=== PATIENT | female | born 1965 | race Caucasian/White ===

== ENCOUNTER 2023-03-01 06:15 | Day surgery (SDC) | payer MEDICAID ==
[~2023-03-01] VITALS: Ht 152.4 cm; Wt 67.2 kg
[~2023-03-01 06:15] MED LIST: ANAS1TAB2 PO; CLINDAMYCIN 900 MG in IV 1 EA IV ONE; COLA100C5 PO; PANT40TA29 PO; PROBCAP14 PO
[2023-03-01] MEDS ORDERED: LR 1,000 ML IV SCH (06:40)
[2023-03-01] MEDS ORDERED: GENTAMICIN SULF 80MG/2ML VIAL As Ordered ONE (07:20)
[2023-03-01] MEDS ORDERED: ONDANSETRON 4MG 2ML VIAL As Ordered ONE (07:26)
[2023-03-01] MEDS ORDERED: fentaNYL 250 MCG/5 ML INJECTION As Ordered ONE (07:26)
[2023-03-01] MEDS ORDERED: LIDOCAINE 2% 100MG/5ML SDV (FOR ANES.) As Ordered ONE (07:26)
[2023-03-01] MEDS ORDERED: propofoL 200 MG/20 ML VIAL As Ordered ONE (07:26)
[2023-03-01] MEDS ORDERED: MIDAZOLAM INJ 2MG/2ML VIAL As Ordered ONE (07:27)
[2023-03-01] MEDS ORDERED: ROCURONIUM BROMIDE 50MG/5ML VIAL As Ordered ONE ×2 (07:58→08:35)
[2023-03-01] MEDS ORDERED: SUGAMMADEX SODIUM 500 MG/5 ML VIAL (BRIDION) As Ordered ONE (08:12)
[2023-03-01] MEDS ORDERED: LACRILUBE (AKWA TEARS) OPHTH OINT 3.5GM As Ordered ONE (08:12)
[2023-03-01] MEDS ORDERED: HYDROmorphone HCL 2MG/ML 1ML VIAL As Ordered ONE (08:38)
[2023-03-01] MEDS ORDERED: PHENYLephrine 500MCG 5ML (100MCG/ML) SYRINGE As Ordered ONE (08:41)
[2023-03-01] MEDS ORDERED: ACETAMINOPHEN 1000MG 100ML IV BAG As Ordered ONE (08:44)
[2023-03-01] MEDS ORDERED: oxyCODONE 5MG TAB PO PRN (10:30)
[2023-03-01] MEDS ORDERED: HYDROMORPHONE HCL 0.5 MG/ 0.5 ML SYRINGE IV PRN (10:30)
[2023-03-01] MEDS ORDERED: fentaNYL 100 MCG/2 ML INJECTION IV PRN (10:30)
[2023-03-01] MEDS ORDERED: OXYC1TAB23 PO (10:39)
[2023-03-01] MEDS ORDERED: ePHEDrine SULFATE 25 MG/5 ML(5MG/ML) SYRINGE As Ordered ONE (11:33)
[2023-03-01 12:34] VITALS: BP 95/61; TEMP 98; O2SAT 97
== END 2023-03-01 12:25 | disposition home or self-care (01) ==
LOC: M SDC 06:15
PROVIDERS: ATTEND Plastic Surgery Surgery of the Hand
DX: C50.911 Malignant neoplasm of unspecified site of right female breast (principal); Z90.13 Acquired absence of bilateral breasts and nipples; K44.9 Diaphragmatic hernia without obstruction or gangrene; K59.00 Constipation, unspecified; Z79.899 Other long term (current) drug therapy; F17.210 Nicotine dependence, cigarettes, uncomplicated; Z92.21 Personal history of antineoplastic chemotherapy; Z92.3 Personal history of irradiation; Z88.0 Allergy status to penicillin; Z88.1 Allergy status to other antibiotic agents
CPT/HCPCS: 11970; 19370; 88300; 88302; C9290; J0131; J1100; J1170; J1580; J2250; J2370; J2405; J3010; L8600; S0020; S0077

== ENCOUNTER 2023-04-07 06:04 | Day surgery (SDC) | payer MEDICAID ==
[~2023-04-07] VITALS: Ht 152.4 cm; Wt 67.5 kg
[~2023-04-07 06:04] MED LIST changes: -CLINDAMYCIN 900 MG in IV 1 EA IV ONE; +OXYC1TAB23 PO
[2023-04-07] MEDS ORDERED: LR 1,000 ML IV SCH ×2 (06:30→08:55)
[2023-04-07 06:31] LABS: HEMATOCRIT 40.6 % (36.0-47.0); HEMOGLOBIN 13.2 g/dl (12.0-15.5); MEAN CORPUSCULAR HEMOGLOBIN 29.1 pg (27.0-33.0); MEAN CORPUSCULAR HGB CONC 32.5 g/dl (32.0-36.5); MEAN CORPUSCULAR VOLUME 89.6 fl (80.0-96.0); PLATELET COUNT, AUTOMATED 247 10^3/uL (150-450); RED BLOOD COUNT 4.53 10^6/uL (4.00-5.40); WHITE BLOOD COUNT 4.6 10^3/uL (4.0-10.0)
[2023-04-07 06:51] LABS: BLOOD UREA NITROGEN 12 MG/DL (9-23); CALCIUM LEVEL 9.5 MG/DL (8.5-10.1); CARBON DIOXIDE LEVEL 29 MMOL/L (20-31); CHLORIDE LEVEL 108 MMOL/L (98-107); CREATININE FOR GFR 0.67 MG/DL (0.55-1.30); GLOMERULAR FILTRATION RATE > 60.0 (>51); GLUCOSE, FASTING 97 MG/DL (60-100); SODIUM LEVEL 142 MMOL/L (136-145)
[2023-04-07] MEDS ORDERED: CLINDAMYCIN 900 MG in IV 1 EA IV ONE (07:15)
[2023-04-07] MEDS ORDERED: propofoL 200 MG/20 ML VIAL As Ordered ONE (07:19)
[2023-04-07] MEDS ORDERED: LIDOCAINE 2% 100MG/5ML SDV (FOR ANES.) As Ordered ONE (07:19)
[2023-04-07] MEDS ORDERED: ONDANSETRON 4MG 2ML VIAL As Ordered ONE (07:19)
[2023-04-07] MEDS ORDERED: MIDAZOLAM INJ 2MG/2ML VIAL As Ordered ONE (07:20)
[2023-04-07] MEDS ORDERED: fentaNYL 250 MCG/5 ML INJECTION As Ordered ONE (07:20)
[2023-04-07] MEDS ORDERED: GENTAMICIN SULF 80MG/2ML VIAL As Ordered ONE ×2 (07:24→07:37)
[2023-04-07] MEDS ORDERED: PHENYLephrine 500MCG 5ML (100MCG/ML) SYRINGE As Ordered ONE (08:08)
[2023-04-07] MEDS ORDERED: ePHEDrine SULFATE 25 MG/5 ML(5MG/ML) SYRINGE As Ordered ONE (08:08)
[2023-04-07] MEDS ORDERED: ACETAMINOPHEN 1000MG 100ML IV BAG As Ordered ONE (08:24)
[2023-04-07] MEDS ORDERED: ONDANSETRON 4MG 2ML VIAL IV PRN (08:55)
[2023-04-07] MEDS ORDERED: fentaNYL 100 MCG/2 ML INJECTION IV PRN (08:55)
[2023-04-07] MEDS ORDERED: oxyCODONE 5MG TAB PO PRN (08:55)
[2023-04-07] MEDS ORDERED: TRAM50TA2 PO (09:09)
[2023-04-07 10:30] VITALS: BP 103/62; TEMP 97.1; O2SAT 96
[2023-04-08] MEDS ORDERED: UNRESOLVED CLARIFICATION ENTRY XX SCH (00:01)
== END 2023-04-07 10:30 | disposition home or self-care (01) ==
LOC: M SDC 06:04
PROVIDERS: ATTEND Plastic Surgery Surgery of the Hand
DX: T85.42XA Displacement of breast prosthesis and implant, initial encounter (principal); Z90.13 Acquired absence of bilateral breasts and nipples; V29.99XA Rider (driver) (passenger) of other motorcycle injured in unspecified traffic accident, initial encounter; C50.911 Malignant neoplasm of unspecified site of right female breast; K21.9 Gastro-esophageal reflux disease without esophagitis; K44.9 Diaphragmatic hernia without obstruction or gangrene; Z92.21 Personal history of antineoplastic chemotherapy; Z92.3 Personal history of irradiation; F17.219 Nicotine dependence, cigarettes, with unspecified nicotine-induced disorders; Z79.899 Other long term (current) drug therapy; Z88.0 Allergy status to penicillin; Z88.1 Allergy status to other antibiotic agents
CPT/HCPCS: 19328; 36415; 80048; 85027; 87070; 87075; 87186; 88300; C9290; J0131; J0665; J0737; J1100; J1580; J2250; J2371; J2405; J3010

== ENCOUNTER 2023-07-07 07:36 | Day surgery (SDC) | payer MEDICAID, OTHER ==
[~2023-07-07] VITALS: Ht 152.4 cm; Wt 67.6 kg
[~2023-07-07 07:36] MED LIST changes: +CLINDAMYCIN 900 MG in IV 1 EA IV ONE; +TRAM50TA2 PO
[2023-07-07] MEDS ORDERED: LR 1,000 ML IV SCH ×2 (08:05→11:05)
[2023-07-07 08:16] LABS: HEMATOCRIT 39.8 % (36.0-47.0); HEMOGLOBIN 13.2 g/dl (12.0-15.5); MEAN CORPUSCULAR HEMOGLOBIN 29.4 pg (27.0-33.0); MEAN CORPUSCULAR HGB CONC 33.2 g/dl (32.0-36.5); MEAN CORPUSCULAR VOLUME 88.6 fl (80.0-96.0); PLATELET COUNT, AUTOMATED 284 10^3/uL (150-450); RED BLOOD COUNT 4.49 10^6/uL (4.00-5.40); WHITE BLOOD COUNT 6.5 10^3/uL (4.0-10.0)
[2023-07-07 08:43] LABS: BLOOD UREA NITROGEN 13 MG/DL (9-23); CALCIUM LEVEL 9.1 MG/DL (8.5-10.1); CARBON DIOXIDE LEVEL 29 MMOL/L (20-31); CHLORIDE LEVEL 107 MMOL/L (98-107); CREATININE FOR GFR 0.71 MG/DL (0.55-1.30); GLOMERULAR FILTRATION RATE > 60.0 (>51); GLUCOSE, FASTING 102 MG/DL (60-100); POTASSIUM SERUM 4.5 MMOL/L (3.5-5.1); SODIUM LEVEL 142 MMOL/L (136-145)
[2023-07-07] MEDS ORDERED: fentaNYL 250 MCG/5 ML INJECTION As Ordered ONE (08:55)
[2023-07-07] MEDS ORDERED: ONDANSETRON 4MG 2ML VIAL As Ordered ONE (08:55)
[2023-07-07] MEDS ORDERED: MIDAZOLAM INJ 2MG/2ML VIAL As Ordered ONE (08:55)
[2023-07-07] MEDS ORDERED: propofoL 200 MG/20 ML VIAL As Ordered ONE (08:55)
[2023-07-07] MEDS ORDERED: LIDOCAINE 2% 100MG/5ML SDV (FOR ANES.) As Ordered ONE (08:55)
[2023-07-07] MEDS ORDERED: ALBUTEROL SULFATE 2.5MG/0.5ML INH NEB SOLN NEB ONE (09:20)
[2023-07-07] MEDS ORDERED: ALBUTEROL SULFATE 2.5MG/0.5ML INH NEB SOLN INH ONE (09:30)
[2023-07-07] MEDS ORDERED: GENTAMICIN SULF 80MG/2ML VIAL As Ordered ONE (09:41)
[2023-07-07] MEDS ORDERED: dexmedeTOMIDine (4MCG/ML)200MCG/50ML BTL (PRECEDEX) As Ordered ONE (10:03)
[2023-07-07] MEDS ORDERED: PHENYLephrine 500MCG 5ML (100MCG/ML) SYRINGE As Ordered ONE (10:42)
[2023-07-07] MEDS ORDERED: ACETAMINOPHEN 1000MG 100ML IV BAG As Ordered ONE (10:47)
[2023-07-07] MEDS ORDERED: MEPERIDINE 25 MG/ML 1ML VIAL IV PRN (11:05)
[2023-07-07] MEDS ORDERED: ONDANSETRON 4MG 2ML VIAL IV PRN (11:05)
[2023-07-07] MEDS ORDERED: fentaNYL 100 MCG/2 ML INJECTION IV PRN (11:05)
[2023-07-07] MEDS ORDERED: BENZ200C70 PO (13:03)
[2023-07-07] MEDS ORDERED: AZIT500T5 PO (13:03)
[2023-07-07 13:05] LABS: PROCALCITONIN <0.04 ng/ml
[2023-07-07] MEDS ORDERED: TRAM50TA2 PO (14:05)
[2023-07-07 14:15] VITALS: BP 103/60; TEMP 97.9; O2SAT 96
== END 2023-07-07 14:23 | disposition home or self-care (01) ==
LOC: M SDC 07:36
PROVIDERS: ATTEND Plastic Surgery Surgery of the Hand
DX: T85.42XA Displacement of breast prosthesis and implant, initial encounter (principal); Y81.2 Prosthetic and other implants, materials and accessory general- and plastic-surgery devices associated with adverse incidents; C50.011 Malignant neoplasm of nipple and areola, right female breast; Z90.13 Acquired absence of bilateral breasts and nipples; Z92.3 Personal history of irradiation; J00 Acute nasopharyngitis [common cold]; Z88.0 Allergy status to penicillin; Z79.899 Other long term (current) drug therapy; F17.210 Nicotine dependence, cigarettes, uncomplicated
CPT/HCPCS: 19328; 36415; 71045; 80048; 84145; 85027; 86140; 87070; 87075; 87077; 87186; 88300; 88305; C9290; J0131; J0665; J0737; J1100; J1580; J2250; J2371; J2405; J3010

== ENCOUNTER → 2023-10-26 | Outpatient (CLI) | payer MEDICAID ==
[~2023-10-26] MED LIST changes: +AZIT500T5 PO; +BENZ200C70 PO; -CLINDAMYCIN 900 MG in IV 1 EA IV ONE
== END ==
LOC: M WHC 11:32
PROVIDERS: ATTEND Plastic Surgery Surgery of the Hand
DX: C50.911 Malignant neoplasm of unspecified site of right female breast (principal); T85.49XD Other mechanical complication of breast prosthesis and implant, subsequent encounter